=== PATIENT | male | born 1960 | race Caucasian/White ===

== ENCOUNTER 2021-11-13 16:20 | Inpatient (IN) | payer OTHER ==
[~2021-11-13] VITALS: Ht 177.8 cm; Wt 78.1 kg
[2021-11-13 18:01] LABS: BASOPHILS ABSOLUTE AUTO 0.08 K/mm3 (0.00-0.23); BASOPHILS PERCENT AUTO 0 % (0-2); EOSINOPHILS ABSOLUTE AUTO 0.07 K/mm3 (0.00-0.68); EOSINOPHILS PERCENT AUTO 0 % (0-6); Hematocrit 49.7 % (37.0-53.0); Hemoglobin 17.3 g/dL (13.5-17.5); IMMATURE GRAN ABSOLUTE AUTO 0.14 K/mm3 (0.00-0.10); IMMATURE GRAN PERCENT AUTO 1 % (0-1); LYMPHOCYTES ABSOLUTE AUTO 2.17 K/mm3 (0.84-5.20); LYMPHOCYTES PERCENT AUTO 10 % (21-46); MONOCYTES ABSOLUTE AUTO 0.89 K/mm3 (0.16-1.47); MONOCYTES PERCENT AUTO 4 % (4-13); Mean Corpuscular HGB 30.4 pg (26.0-34.0); Mean Corpuscular HGB Conc 34.8 g/dL (31.5-36.5); Mean Corpuscular Volume 87 fL (80-100); Mean Platelet Volume 10.6 fL (9.1-12.4); NEUTROPHILS ABSOLUTE AUTO 18.06 K/mm3 (1.96-9.15); NEUTROPHILS PERCENT AUTO 84 % (41-73); Platelet Count 275 K/mm3 (150-400); RDW Coefficient Variation 11.9 % (11.7-14.2); RDW Standard Deviation 38.2 fL (35.1-46.3); Red Blood Cell Count 5.69 M/mm3 (4.30-5.90); White Blood Cell Count 21.41 K/mm3 (4.00-11.30)
[2021-11-13 18:20] LABS: Albumin, Blood 4.1 g/dL (3.4-5.0); Albumin/Globulin Ratio 1.1 (0.8-1.8); Bilirubin, Total 0.5 mg/dL (0.1-1.0); Bun/Creatinine Ratio 40.7 (12.0-20.0); Calcium, Blood 9.2 mg/dL (8.5-10.1); Creatinine, Blood 0.57 mg/dL (0.60-1.20); Globulin, Blood 3.9 g/dL (2.2-4.0); Potassium, Blood 4.7 mmol/L (3.5-5.5)
[2021-11-13 20:07] LABS: Source, Urine Clean Catch
[2021-11-13 20:12] LABS: Bilirubin, Urine Neg (Neg); Blood, Urine Neg (Neg); Glucose Qualitative, Urine 4+ (Neg); Ketones, Urine 3+ (Neg); Leukocyte Esterase, Urine Neg (Neg); Nitrite, Urine Neg (Neg); Protein, Urine 1+ (Neg); Urobilinogen, Urine 1+ (Normal)
[2021-11-13 20:20] LABS: Appearance, Urine Clear (Clear); Color, Urine Yellow (P-Yellow)
--- NOTE | 2021-11-14 00:33 | NUR ---
PT REFUSED INSULIN PT CBG DURING MIDNIGHT CHECK IS 316. PT TO RECIEVE 4 UNITS HUMULIN BASED ON ORDERED SLIDING SCALE COVERAGE. JUST BEFORE INSULIN WAS GIVEN PT STATED THAT HE DIDN'T WANT TO TAKE IT AND THAT HE HAD A REACTION "A FEW YEARS AGO" BUT WAS UNABLE TO ELABORATE ON WHAT KIND OF REACTION HE HAD. PT THEN STATED "I JUST DONT REALLY WANT TO TAKE IT AND I DONT UNDERSTAND HOW MY BLOOD SUGAR IS THAT HIGH WHEN I HAVEN'T EATEN MUCH TODAY". THIS RN ATTEMPTED TO EXPLAIN TO PT THAT JUST BECAUSE HE HASN'T EATEN MUCH TODAY DOESN'T MEAN THAT HIS SUGAR WILL BE LOW WITH TYPE 2 DM. PT STATED "NO NOT WITH TYPE 2" AND WAS NOT RECEPTIVE TO ANY EDUCATION. PT VERY IRRITABLE AND DISMISSIVE AT THIS POINT. NOTIFIED DR DUFFY OF PT'S INSULIN REFUSAL, DR DUFFY SAID TO CHECK CBG AGAIN IN 4-5 HOURS.
--- NOTE | 2021-11-14 06:32 | NUR ---
SUGAR CANE GROWER SUMMARY PATIENT ARRIVED ON THE FLOOR AT ABOUT 2100. A&O X4. VSS. PATIENT REFUSED INSULIN, COVID TEST, AND TRANSFUSION. PATIENT EDUCATED ABOUT POTENTIAL RISKS. PATIENT COMPLAINED OF 8-9 PAIN THAT CONTINUED DESPITE ADMINISTRATION OF ROXICODONE AND MORPHINE PER EMAR. SURGERY PREP COMPLETED. NO OTHER ACUTE CHANGES THIS SHIFT.
[2021-11-14 06:50] LABS: BASOPHILS ABSOLUTE AUTO 0.05 K/mm3 (0.00-0.23); BASOPHILS PERCENT AUTO 0 % (0-2); EOSINOPHILS PERCENT AUTO 2 % (0-6); Hematocrit 44.3 % (37.0-53.0); Hemoglobin 15.3 g/dL (13.5-17.5); IMMATURE GRAN ABSOLUTE AUTO 0.05 K/mm3 (0.00-0.10); IMMATURE GRAN PERCENT AUTO 0 % (0-1); LYMPHOCYTES ABSOLUTE AUTO 1.98 K/mm3 (0.84-5.20); LYMPHOCYTES PERCENT AUTO 16 % (21-46); MONOCYTES ABSOLUTE AUTO 0.68 K/mm3 (0.16-1.47); MONOCYTES PERCENT AUTO 6 % (4-13); Mean Corpuscular HGB 30.2 pg (26.0-34.0); Mean Corpuscular HGB Conc 34.5 g/dL (31.5-36.5); Mean Corpuscular Volume 88 fL (80-100); Mean Platelet Volume 10.6 fL (9.1-12.4); NEUTROPHILS PERCENT AUTO 76 % (41-73); Platelet Count 211 K/mm3 (150-400); RDW Standard Deviation 38.4 fL (35.1-46.3); Red Blood Cell Count 5.06 M/mm3 (4.30-5.90); White Blood Cell Count 12.06 K/mm3 (4.00-11.30)
[2021-11-14 07:11] LABS: Bun/Creatinine Ratio 36.6 (12.0-20.0); Calcium, Blood 8.7 mg/dL (8.5-10.1); Creatinine, Blood 0.52 mg/dL (0.60-1.20); Potassium, Blood 3.9 mmol/L (3.5-5.5)
[2021-11-14 08:24] LABS: Influenza A, PCR NEGATIVE (NEGATIVE); Influenza B, PCR NEGATIVE (NEGATIVE); Resp Syncytial Virus, PCR NEGATIVE (NEGATIVE); SARS-Cov-2 (COVID-19) PCR, MMC NEGATIVE (NEGATIVE)
--- NOTE | 2021-11-14 11:41 | NUR ---
History, Chart, Medications and Allergies reviewed before start of procedure. Patient confirms NPO status and agrees with scheduled surgery.
--- NOTE | 2021-11-14 14:11 | NUR ---
PT HAS DENTURES IN AND GLASSES WERE GIVEN TO PT. PT STATES "PAIN IS THE SAME IT WAS 15 MINUTES AGO". PT APPEARS TO BE RESTING COMFORTABLY AND CALM, NO FACIAL GRIMACE.
--- NOTE | 2021-11-14 14:39 | NUR ---
PATIENT CAME BACK FROM PACU TODAY 11/14/21 @ 1420. POD 0 LEFT HIP NAILING PATIENT IS A&OX4. VS ARE WNL EXCEPT IS ON 3L NC ON OXYGEN WITH >90% OXYGEN SATS. PATIENT DENIES PAIN AT THIS TIME. LEFT HIP HAS TWO SMALL AQUACELS THAT ARE C/D/I. DENIES NUMBNESS AND TINGLING. CAN MOVE FINGERS AND TOES WHEN ASKED. PEDAL PULSES ARE STRONG. HE IS ALREADY TOLERATING PO INTAKE AND IS DRINKING. PATIENT IS WATCHING TV AT THIS TIME IN BED. CALL LIGHT WITHIN REACH.
--- NOTE | 2021-11-14 18:04 | NUR ---
SHIFT SUMMARY: NO SIGNIFICANT CHANGES SINCE POST OP. PATIENT IS A SBA WITH FWW AND GAIT BELT. LEFT HIP HAS TWO SMALL AQUACELS THAT ARE C/D/I. PAIN IS MANAGED WITH PO ISAAK. HE DENIES NUMBNESS AND TINGLING. TOLERATES PO INTAKE AND IS VOIDING WELL HAD A BM. CALL LIGHT WITHIN REACH. THE PLAN IS TO DISCHARGE HOME TOMORROW IF APPROPRIATE.
--- NOTE | 2021-11-14 21:17 | NUR ---
CBG: PT'S HS CBG WAS 381. PT AGREED TO TAKE 4 UNITS PER LOW SS. HOSPITALIST NOTIFIED (>350) NEW ORDER FOR 15 UNITS LANTUS ORDERED. WILL NOTIFY PRIMARY RN.
--- NOTE | 2021-11-15 05:28 | NUR ---
SHIFT SUMMARY A/O X4. POD1 L HIP NAILING-SBA W/ GB AND FWW. VOIDING WELL AND TOLERATING PO INTAKE. REPOSITIONING AND TREATING PER EMAR FOR PAIN. VITAL SIGNS STABLE. PLEASANT AND COOPERATIVE WITH CARE. PT AGREEABLE TO INSULIN TONIGHT WITH SOME EDUCATION. WILL CONTINUE TO MONITOR AND REPORT TO ONCOMING RN.
[2021-11-15] MEDS ORDERED: Acetaminophen650 M1 PO (12:56)
[2021-11-15] MEDS ORDERED: GLIP2.5ER PO (12:58)
[2021-11-15] MEDS ORDERED: Metformin HCl500 M1 PO (12:59)
[2021-11-15] MEDS ORDERED: ROXICODONE5 MG PO (13:03)
--- NOTE | 2021-11-15 14:03 | NUR ---
DISCHARGE SUMMARY: A&Ox4. VSS. TOLERATING PO INTAKE. SELF-AMBULATING AND ELIMINATING WITHOUT DIFFICULTY. PAIN CONTROLLED WITH PRN OXYCODONE 5MG. HARD COPY Rx FOR WHEELCHAIR, OXY AND GLUCOMETER PLACED INTO PATIENT'S DISCHARGE PACKET ALONG WITH ADDITIONAL WOUND CARE SUPPLIES AND INSTRUCTIONS TO FOLLOW-UP. PATIENT LEFT THE UNIT WITH ALL PERSONAL BELONGINGS, RX'S AND DISCHARGE PACKET VIA WHEELCHAIR ESCORT AND ASSISTED INTO [employer] VEHICLE IN ANTICIPATION OF TRANSPORT HOME.
--- NOTE | 2021-11-15 14:09 | NUR ---
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 LEFT FLOOR VIA WC WITH SN-RN TO GO HOME VIA [employer] CAB. DC INS PROVIDED, PT REP UNDERSTANDING THOSE INSTRUCTIONS. TWO AQUACEL DRESSINGS CHANGED AND 2 OF EACH SIZE PROVIDED FOR PT TO CHANGE AT HOME WEEKLY UNTIL FU WITH SURGEON IN 2 WKS.
--- NOTE | 2021-11-17 13:40 | NUR ---
11/17/21 1340 Gloria Kong VERIFICATIONS: EDIT CHART.
== END 2021-11-15 13:40 | disposition home health service (06) | DRG 482 ==
LOC: ER 16:20 → SURS 16:21
PROVIDERS: Emergency Medicine; Orthopaedic Surgery; ADMIT Internal Medicine
PROC: 0QS704Z Reposition Left Upper Femur with Internal Fixation Device, Open Approach (ICD-10-PCS; principal; 2021-11-14 12:00)
DX: S72.145A Nondisplaced intertrochanteric fracture of left femur, initial encounter for closed fracture (principal); Z66 Do not resuscitate; Z20.822 Contact with and (suspected) exposure to COVID-19; E11.9 Type 2 diabetes mellitus without complications; D72.828 Other elevated white blood cell count; F17.210 Nicotine dependence, cigarettes, uncomplicated; Z98.890 Other specified postprocedural states; W18.39XA Other fall on same level, initial encounter
CPT/HCPCS: 0241U; 36415; 73502; 80048; 80053; 82947; 83036; 85025; 94760; 96374; 96376; 97110; 97116; 97161; 97166; 97530; 99285-25; A9270; C1713; C1769; J0690; J1100; J1815; J1885; J2250; J2270; J2405; J2704; J2795; J3010; J7030; J7120

== ENCOUNTER 2025-02-20 14:12 | Emergency (ER) | payer OTHER ==
[~2025-02-20] VITALS: Ht 175.3 cm; Wt 65.8 kg
[~2025-02-20 14:12] MED LIST: Acetaminophen650 M1 PO; GLIP2.5ER PO; Metformin HCl500 M1 PO; ROXICODONE5 MG PO
[2025-02-20 15:55] LABS: Magnesium, Blood 2.1 mg/dL (1.6-2.4)
[2025-02-20 15:57] LABS: Alanine Aminotransfer (ALT/SGP 17.0 U/L (12-78); Albumin, Blood 3.8 g/dL (3.4-5.0); Albumin/Globulin Ratio 1.1 (0.8-1.8); Anion Gap 6.0 mmol/L (3-11); Aspartate Aminotrans (AST/SGOT 11.0 U/L (12-37); Bilirubin, Total 0.7 mg/dL (0.1-1.0); Blood Urea Nitrogen 14.0 mg/dL (8-24); CO2, Blood 31.0 mmol/L (21-32); Calcium, Blood 9.0 mg/dL (8.5-10.1); Chloride, Blood 100.0 mmol/L (98-108); Creatinine, Blood 0.81 mg/dL (0.60-1.20); Globulin, Blood 3.6 g/dL (2.2-4.0); Glucose, Blood 202.0 mg/dL (70-99); Potassium, Blood 4.2 mmol/L (3.5-5.5); Sodium, Blood 133.0 mmol/L (136-145); Total Protein, Blood 7.4 g/dL (6.4-8.2)
[2025-02-20 15:58] LABS: Phosphorus, Blood 4.7 mg/dL (2.5-4.9)
[2025-02-20 15:59] LABS: Ethanol (Alcohol), Blood, Med <3 mg/dL
[2025-02-20 16:05] LABS: Source, Urine Clean Catch
[2025-02-20 16:09] LABS: BASOPHILS ABSOLUTE AUTO 0.06 K/mm3 (0.00-0.23); BASOPHILS PERCENT AUTO 1 % (0-2); EOSINOPHILS ABSOLUTE AUTO 0.06 K/mm3 (0.00-0.68); EOSINOPHILS PERCENT AUTO 1 % (0-6); Hematocrit 40.7 % (37.0-53.0); Hemoglobin 14.3 g/dL (13.5-17.5); IMMATURE GRAN ABSOLUTE AUTO 0.02 K/mm3 (0.00-0.10); IMMATURE GRAN PERCENT AUTO 0 % (0-1); LYMPHOCYTES ABSOLUTE AUTO 1.59 K/mm3 (0.84-5.20); LYMPHOCYTES PERCENT AUTO 18 % (21-46); MONOCYTES ABSOLUTE AUTO 0.36 K/mm3 (0.16-1.47); MONOCYTES PERCENT AUTO 4 % (4-13); Mean Corpuscular Volume 85 fL (80-100); NEUTROPHILS ABSOLUTE AUTO 6.71 K/mm3 (1.96-9.15); NEUTROPHILS PERCENT AUTO 76 % (41-73); NRBC ABSOLUTE 0.00 K/mm3 (0.00-0.02); NRBC Auto 0.0 /100 WBC (0.0-0.2); Platelet Count 208 K/mm3 (150-400); RDW Coefficient Variation 12.6 % (11.7-14.2); RDW Standard Deviation 39.3 fL (35.1-46.3)
[2025-02-20 16:10] LABS: Mean Corpuscular HGB Conc 35.1 g/dL (31.5-36.5)
[2025-02-20 16:24] LABS: Bilirubin, Urine Neg (Neg); Color, Urine Yellow (P-Yellow); Glucose Qualitative, Urine 3+ (Neg); Ketones, Urine Neg (Neg); Leukocyte Esterase, Urine Neg (Neg); Protein, Urine 2+ (Neg); Specific Gravity, Urine 1.020 (1.003-1.022); Urobilinogen, Urine NORM (Normal)
[2025-02-20 16:30] VITALS: BP 138/79
[2025-02-20 16:52] LABS: Red Blood Cells, Urine 0-2 /hpf (0-2); White Blood Cells, Urine 0-2 /hpf (0-5)
[2025-02-20 16:55] LABS: U Amphetamine Screen Not Detected; U Barbituate Screen Not Detected; U Benzodiazapine Screen Not Detected; U Buprenorphine Screen Not Detected; U Cannabinoids Screen Not Detected; U Cocaine Screen Not Detected; U Methadone Screen Not Detected; U Methamphetamine Screen Not Detected; U Opiates Screen Not Detected; U Oxycodone Screen Not Detected; U Phencyclidine Screen Not Detected
== END 2025-02-20 16:51 | disposition home or self-care (01) ==
LOC: ER 14:12
PROVIDERS: Emergency Medicine; Physician Assistant
DX: I95.9 Hypotension, unspecified (principal); E86.0 Dehydration; F17.210 Nicotine dependence, cigarettes, uncomplicated
CPT/HCPCS: 36415; 71045; 80053; 80320; 81001; 83605; 83735; 84100; 85025; 87040; 93005; 93010; 99285-25